=== PATIENT | female | born 1970 | race Caucasian/White ===

== ENCOUNTER → 2020-06-24 | Outpatient (CLI) | payer MEDICARE ==
--- NOTE | 2020-06-25 04:48 | MR ---
EXAMINATION TYPE: MR brain/cspine wo/w DATE OF EXAM: 06/24/2020 COMPARISON: CT brain 11/09/2009 HISTORY: Fly pain and numbness, headaches, pituitary apoplexy CONTRAST: Standard multiplanar, multisequence MRI departmental protocol utilizing 6 mL intravenous Gadavist cynthia olinium contrast. Ventricles have normal size. There is no mass effect nor midline shift. There is no sign of intracran ial hemorrhage. Diffusion images show no evidence of an acute infarct. Urrutia-white matter structures h ave fairly normal signal pattern. There is no evidence of cerebral edema. The optic chiasm appears no rmal. Brainstem is intact. Sella turcica appears normal. Corpus callosum appears normal. There is no evidence of orbital mass. The cervical vertebra have fairly normal alignment. There is a few millimeter subluxation at T1-T2 le dionne. The cervical spinal cord has normal signal pattern. There is no edema. There is no cervical spin al stenosis. There is no compression fracture. There is small posterior right side uncovertebral spur ring and disc bulging at see 4 5 and C5-6. There is resultant mild neural foraminal impingement. Contrast images show normal enhancement of the venous sinuses. There is no pathologic enhancement. Th ere is uniform enhancement of the sella turcica. There is no evidence of sellar mass. IMPRESSION: Right side C4-5 and C5-6 neural foraminal impingement related to disc bulging and uncovertebral spurr ing. No cervical spinal stenosis. No fracture. No significant abnormality in the MR scan of the brain.
== END | disposition home or self-care (01) ==
LOC: RADMRIMAIN 07:58
PROVIDERS: ATTEND Internal Medicine
DX: M50.221 Other cervical disc displacement at C4-C5 level (principal); M50.222 Other cervical disc displacement at C5-C6 level
CPT/HCPCS: 70553; 72156; A9585

== ENCOUNTER → 2020-07-27 | Outpatient (CLI) | payer MEDICARE ==
--- NOTE | 2020-07-31 08:05 | MM ---
Reason for exam: screening (asymptomatic). Last mammogram was performed 2 years and 6 months ago. History: Patient is postmenopausal and is nulliparous. Family history of breast cancer in mother at age 53 and breast cancer in sister at age 50. Physical Findings: A clinical breast exam by your physician is recommended on an annual basis and results should be correlated with mammographic findings. MG Screening Mammo w CAD Bilateral CC and MLO view(s) were taken. Prior study comparison: January 30, 2018, mammogram. May 27, 2016, mammogram. The breast tissue is heterogeneously dense. This may lower the sensitivity of mammography. Right breast multiple nodules upper inner middle depth to posterior depth. Left retroareolar density CC view. Asymmetry superior middle depth in the left breast on MLO. ASSESSMENT: Incomplete: need additional imaging evaluation, BI-RAD 0 RECOMMENDATION: Special view mammogram of both breasts. If lesion persists on supplemental views, image directed ultrasound is recommended. [facility] will attempt to contact patient to return for supplemental views and ultrasound if indicated.
== END | disposition home or self-care (01) ==
LOC: RADMAMWWP 11:36
PROVIDERS: ATTEND Obstetrics & Gynecology
DX: Z12.31 Encounter for screening mammogram for malignant neoplasm of breast (principal); Z78.0 Asymptomatic menopausal state; Z80.3 Family history of malignant neoplasm of breast
CPT/HCPCS: 77067

== ENCOUNTER → 2020-08-03 | Outpatient (CLI) | payer MEDICARE ==
--- NOTE | 2020-08-09 12:00 | MM ---
Reason for exam: additional evaluation requested from abnormal screening. Last mammogram was performed less than 1 month ago. History: Patient is postmenopausal and is nulliparous. Family history of breast cancer in mother at age 53, breast cancer in sister at age 50, and breast cancer in maternal aunt. Physical Findings: Nurse did not find any significant physical abnormalities on exam. MG Work Up Mamm w CAD BILAT Bilateral spot compression CC, spot compression MLO, and LM view(s) were taken. Prior study comparison: July 27, 2020, bilateral MG screening mammo w CAD. January 30, 2018, mammogram. The breast tissue is heterogeneously dense. This may lower the sensitivity of mammography. Finding: There is a persistent indistinct round mass in the upper inner quadrant, anterior middle position of the right breast. New finding since July 27, 2020 and January 30, 2018. These results were verbally communicated with the patient and result sheet given to the patient on 08/03/20. ASSESSMENT: Incomplete: need additional imaging evaluation, BI-RAD 0 RECOMMENDATION: Ultrasound of the right breast.
--- NOTE | 2020-08-09 12:02 | USB ---
Reason for exam: additional evaluation requested from abnormal screening. History: Patient is postmenopausal and is nulliparous. Family history of breast cancer in mother at age 53, breast cancer in sister at age 50, and breast cancer in maternal aunt. US Breast Workup Limited RT Right limited breast ultrasound including focal area of concern, retroareolar and axilla demonstrates a 0.4 x 0.3 x 0.4cm lesion too small to characterize at 12 o'clock, biopsy recommended and a 0.6 x 0.3 x 0.5cm cystic cluster at 3 o'clock. These results were verbally communicated with the patient and result sheet given to the patient on 08/03/20. ASSESSMENT: Suspicious, BI-RAD 4 RECOMMENDATION: Ultrasound core biopsy of the right breast. Called Dr. Kaye office with mammographic findings and has scheduled an appointment for the patient for 08/31/20 at 1:[address] Zelaya. Biopsy scheduled for 09/01/20 at 10:30. PRELIMINARY REPORT CALLED AND FAXED TO DR. ZELAYA ON 08/09/20.
== END | disposition home or self-care (01) ==
LOC: RADMAMWWP 14:40
PROVIDERS: ATTEND Obstetrics & Gynecology
DX: R92.2 Inconclusive mammogram (principal); Z78.0 Asymptomatic menopausal state
CPT/HCPCS: 77066